=== PATIENT | male | born 1955 | race Caucasian/White ===

== ENCOUNTER → 2017-04-18 | Outpatient (CLI) | payer MEDICARE, MEDICAID ==
[~2017-04-18] MED LIST: AMLO5TAB88 PO; CINA30 PO; FOLI0.8T23 PO; HYDR-3511 PO; HYDR-4135 PO; METO100T5 PO; OMEP20TA2 PO; SEVE800T8 PO
== END | disposition home or self-care (01) ==
LOC: LAB 13:28
DX: K43.0 Incisional hernia with obstruction, without gangrene (principal)
CPT/HCPCS: 36415; 82565; 84520

== ENCOUNTER → 2017-04-19 | Outpatient (CLI) | payer MEDICARE, MEDICAID ==
[~2017-04-19] MED LIST changes: +BARIUM SULFATE 450ML ORAL SUSP ONE; +IOHEXOL-300 100 ML BOTTLE ONE; +SODIUM CHLORIDE 0.9% 10ML VIAL ONE
== END | disposition home or self-care (01) ==
LOC: CT 08:27
PROVIDERS: ATTEND Surgery
DX: K43.2 Incisional hernia without obstruction or gangrene (principal); K57.90 Diverticulosis of intestine, part unspecified, without perforation or abscess without bleeding; N28.1 Cyst of kidney, acquired
CPT/HCPCS: 74177; A4216; Q9967

== ENCOUNTER → 2017-08-25 | Day surgery (SDC) | payer MEDICARE, MEDICAID ==
[~2017-08-25] VITALS: Ht 172.7 cm; Wt 97.0 kg
[~2017-08-25] MED LIST changes: +BACITRACIN 50,000 UNITS/VIAL ONE; +BACITRACIN ZINC 15GM TUBE TOP ONE; -BARIUM SULFATE 450ML ORAL SUSP ONE; +BUPIVACAINE HCL 0.5% (5MG/ML) 50ML ONE; +CEFAZOLIN SODIUM 1000MG/VIAL ONE; +DEXAMETHASONE 4MG/ML 1ML VIAL ONE; +HYDROMORPHONE HCL/PF 2MG/ML CPJ IV PRN; -IOHEXOL-300 100 ML BOTTLE ONE; +LABETALOL 5MG/ML SYR 20 MG/4 ML SYRINGE IV PRN; +MEPERIDINE HCL/PF 25MG/ML CPJ IV PRN; +METO100T16 PO; -METO100T5 PO; +NEOSTIGMINE METHYLSULFATE 1MG/ML 10 ML VIAL ONE; +NORMAL SALINE 0.9% 10 ML SYR ONE; +ONDANSETRON HCL 4MG/2ML VIAL IV PRN; +ONDANSETRON HCL 4MG/2ML VIAL ONE; +ROCURONIUM BROMIDE 10MG/ML VIAL 5ML IV ONE; +SKIN ADHESIVE 0.7 GM EA TOP ONE; -SODIUM CHLORIDE 0.9% 10ML VIAL ONE; +SODIUM CHLORIDE 0.9% 500 ML IV ONE; +VASOPRESSIN 20 UNIT/ML 1ML ONE
[2017-08-25 09:41] VITALS: BP 111/67
== END | disposition home or self-care (01) ==
LOC: OR 05:18
PROVIDERS: ATTEND Surgery
DX: K43.2 Incisional hernia without obstruction or gangrene (principal); I12.0 Hypertensive chronic kidney disease with stage 5 chronic kidney disease or end stage renal disease; E11.22 Type 2 diabetes mellitus with diabetic chronic kidney disease; N18.6 End stage renal disease; Z99.2 Dependence on renal dialysis; Z86.010 Personal history of colon polyps; K21.9 Gastro-esophageal reflux disease without esophagitis; Z87.891 Personal history of nicotine dependence; I34.0 Nonrheumatic mitral (valve) insufficiency
CPT/HCPCS: 36415; 49565; 80048; C1781; G0168; J0690; J1100; J1170; J2405; J2710; J3490; J7040; A4216